=== PATIENT | male | born 1970 | race Caucasian/White ===

== ENCOUNTER 2020-11-14 18:20 | Inpatient (IN) | payer MEDICAID ==
[~2020-11-14] VITALS: Ht 165.1 cm; Wt 69.9 kg
[2020-11-14] MEDS ORDERED: LORAZEPAM 2MG/ML CPJ IV PRN (18:45)
[2020-11-14] MEDS ORDERED: PHENOBARBITAL SODIUM 130MG/ML 1ML IV SCH (19:15)
[2020-11-14 19:41] LABS: BASOPHILS % 0.7 % (0.0-2.0); EOSINOPHILS % 1.7 % (0.0-5.0); HEMATOCRIT. 36.4 % (42.0-52.0); HEMOGLOBIN. 12.8 g/dL (14.0-18.0); LYMPHOCYTES % 10.3 % (20.0-50.0); MEAN CORPUSCULAR HEMOGLOBIN 34.9 pg (28.0-32.0); MEAN CORPUSCULAR VOLUME 99.3 fL (80.0-94.0); MEAN PLATELET VOLUME 8.7 fl (7.4-10.4); MONOCYTES % 7.2 % (2.0-8.0); NEUTROPHILS % 80.1 % (40.0-76.0); PLATELET 113 x1000/uL (130-400); RED BLOOD CELL COUNT 3.67 mill/uL (4.7-6.1); RED CELL DISTRIBUTION WIDTH 12.7 % (11.6-14.6)
[2020-11-14 19:54] LABS: CHLORIDE 89 mEq/L (98-107)
[2020-11-14 19:55] LABS: CLARITY URINE CLEAR (CLEAR); COLOR URINE DARK YELLOW (YELLOW); KETONES URINE TRACE (NEGATIVE); LEUKOCYTE ESTERASE URINE TRACE (NEGATIVE); NITRITE URINE NEGATIVE (NEGATIVE); OCCULT BLOOD URINE NEGATIVE (NEGATIVE); PH URINE 7.5 (4.5-8.0); PROTEIN URINE 1+ (NEGATIVE); SPECIFIC GRAVITY URINE 1.023 (1.005-1.030)
[2020-11-14 19:58] LABS: ETHANOL BLOOD < 10 mg/dL
[2020-11-14] MEDS ORDERED: PHENOBARBITAL INJ 260 MG in SODIUM CHLORIDE 0.9% 100 ML IV SCH (20:00)
[2020-11-14 20:15] LABS: *BENZODIAZEPINES SCREEN URINE NEGATIVE (NEGATIVE)
[2020-11-14 20:16] LABS: *COCAINE SCREEN URINE NEGATIVE (NEGATIVE); CANNABINOID URINE SCREEN NEGATIVE (NEGATIVE); METHADONE URINE SCREEN NEGATIVE (NEGATIVE); OPIATES URINE SCREEN NEGATIVE (NEGATIVE); PHENCYCLIDINE URINE SCREEN NEGATIVE (NEGATIVE)
[2020-11-14 20:17] LABS: *AMPHETAMINES SCREEN URINE NEGATIVE (NEGATIVE); *BARBITURATES SCREEN URINE NEGATIVE (NEGATIVE)
[2020-11-14] MEDS ORDERED: POTASSIUM CHLORIDE INJ 30 MEQ in DEXT 5%/0.9% NACL 1,000 ML IV ONE (20:45)
[2020-11-14] MEDS ORDERED: MAGNESIUM 1 G PREMIX 100 ML IV ONE (20:45)
[2020-11-14] MEDS ORDERED: POTASSIUM CHLORIDE INJ 30 MEQ in DEXT 5% WATER 250 ML IV NR (21:30)
[2020-11-14] MEDS ORDERED: POTASSIUM CHLORIDE 20MEQ TABLET SR PO ONE (22:30)
[2020-11-15 00:30] VITALS: BP 138/93
[2020-11-15 00:40] VITALS: BP 138/93
[2020-11-15] MEDS ORDERED: LORAZEPAM 2MG/ML CPJ IV PRN (01:00)
[2020-11-15 04:00] VITALS: BP 133/90
[2020-11-15 08:00] VITALS: BP 141/99
[2020-11-15] MEDS ORDERED: CHLORDIAZEPOXIDE 25MG CAPSULE PO SCH (09:00)
[2020-11-15] MEDS ORDERED: LEVETIRACETAM 500MG TABLET PO SCH (09:00)
[2020-11-15] MEDS ORDERED: MULTIVITAMINS,THER W-MINERALS TABLET PO SCH (09:00)
[2020-11-15] MEDS ORDERED: FOLIC ACID 1MG TABLET PO SCH (09:00)
[2020-11-15] MEDS ORDERED: PANTOPRAZOLE SODIUM 40 MG/VIAL IV SCH (09:00)
[2020-11-15] MEDS ORDERED: THIAMINE HCL 100MG TABLET PO SCH (09:00)
[2020-11-15] MEDS ORDERED: SODIUM CHLORIDE 0.9% 1,000 ML IV SCH (11:00)
[2020-11-15 12:00] VITALS: BP 122/88
[2020-11-15] MEDS ORDERED: PNEUMOCOCCAL 23-VAL P-SAC VAC 0.5 ML IM ONE (12:00)
[2020-11-15 12:22] LABS: CHLORIDE 93 mEq/L (98-107)
[2020-11-15 12:28] LABS: PHOSPHORUS 2.5 mg/dL (2.5-4.9)
[2020-11-15] MEDS ORDERED: THIA100T72 PO (15:11)
[2020-11-15] MEDS ORDERED: L25 PO (15:11)
[2020-11-15] MEDS ORDERED: KEPP500 PO (15:11)
[2020-11-15 15:35] VITALS: BP 111/85
== END 2020-11-15 16:07 | disposition home or self-care (01) | DRG 53 ==
LOC: ER 18:20 → 5WST 22:23 → ENRESERV 23:06
PROVIDERS: ADMIT Internal Medicine; ATTEND Internal Medicine
DX: G40.909 Epilepsy, unspecified, not intractable, without status epilepticus (principal); F10.239 Alcohol dependence with withdrawal, unspecified; D64.9 Anemia, unspecified; E44.1 Mild protein-calorie malnutrition; E87.1 Hypo-osmolality and hyponatremia; E87.6 Hypokalemia; R74.01 Elevation of levels of liver transaminase levels; I69.351 Hemiplegia and hemiparesis following cerebral infarction affecting right dominant side; Z68.25 Body mass index [BMI] 25.0-25.9, adult; Z71.41 Alcohol abuse counseling and surveillance of alcoholic
CPT/HCPCS: 36415; 80048; 80053; 80305; 80320; 81003; 82962; 83735; 84100; 85025; 90732; 93005; 99291; C9113; J2560; J3475; J3480; J7030; J7042; J7050; J7060; G0480